=== PATIENT | male | born 1970 | race Caucasian/White ===

== ENCOUNTER 2017-08-28 12:43 | Inpatient (IN) | payer OTHER ==
[~2017-08-28] VITALS: Ht 177.8 cm; Wt 113.5 kg
[2017-08-28 13:22] VITALS: BP 135/75
[2017-08-28] MEDS ORDERED: LEVOFLOXACIN 500MG/D5W 100ML 100 ML IV SCH (13:45)
[2017-08-28] MEDS ORDERED: ONDANSETRON HCL INJ 2 MG/ML VIAL IV PRN (13:45)
[2017-08-28] MEDS ORDERED: SODIUM CHLORIDE 0.9% 1000ML 1,000 ML IV ONE ×2 (14:00→14:30)
[2017-08-28 14:32] LABS: HEMATOCRIT 45.2 % (38.2-49.6); MEAN CORPUSCULAR HEMOGLOBIN 31.1 pg (28-32); MEAN CORPUSCULAR HGB CONC 35.4 g/dL (31-35); MEAN CORPUSCULAR VOLUME 87.9 fL (81-99); PLATELET COUNT 239 x10e3/uL (140-360); RED BLOOD COUNT 5.14 x10e6/uL (4.3-5.7); RED CELL DISTRIBUTION WIDTH 12.9 % (11.7-14.4)
[2017-08-28 14:53] LABS: ALANINE AMINOTRANSFERASE 58 IU/L (0-55); ALBUMIN 3.7 g/dL (3.5-5.0); ALBUMIN/GLOBULIN RATIO 1.1 (0.8-2.0); ALKALINE PHOSPHATASE 54 IU/L (40-150); ANION GAP 14.8 mmol/L (8-16); BLOOD UREA NITROGEN 12 mg/dL (7-26); BUN/CREATININE RATIO 14 (6-25); CALCIUM 8.9 mg/dL (8.4-10.2); CARBON DIOXIDE 24 mmol/L (22-29); CHLORIDE 104 mmol/L (98-107); CREATININE, SERUM 0.85 mg/dL (0.72-1.25); EST GLOMERULAR FILTRATION RATE > 60 ML/MIN (60-); GLUCOSE 117 mg/dL (74-118); POTASSIUM 3.8 mmol/L (3.5-5.1); SODIUM 139 mmol/L (136-145)
[2017-08-28 16:00] VITALS: BP 151/89
[2017-08-28] MEDS: LEVOFLOXACIN 500MG/D5W 100ML 100 ML IV SCH (16:17)
[2017-08-28] MEDS: SODIUM CHLORIDE 0.9% 1000ML 1,000 ML IV SCH ×2 (17:30→23:53)
--- NOTE | 2017-08-28 17:32 | Diagnostic Imaging Report ---
PROCEDURE: Frontal and lateral views of the chest. COMPARISON: Patients [facility], , CHEST SINGLE (NOT PORTABLE), 10/12/2016, 13:22. INDICATIONS: PNEUMONIA FINDINGS: Lines/tubes: None. Lungs: The lungs are mildly hyperinflated, however, clear. There is no evidence of pneumonia or pulmonary edema. Pleura: There is no pleural effusion or pneumothorax. Heart and mediastinum: The cardiac silhouette is mildly enlarged. Bones: No acute bony abnormality. At the level spondylosis of the thoracic spine. IMPRESSION: 1. No acute thoracic abnormality. Carly Espino M.D. Dictated by: Carly Espino M.D. on 08/28/2017 at 17:32 Electronically approved by: Carly Espino M.D. on 08/28/2017 at 17:32
--- NOTE | 2017-08-28 17:39 | History and Physical ---
CHIEF COMPLAINT: A 47-year-old male comes in with shortness of breath and fatigue. HISTORY OF PRESENT ILLNESS: The patient was in her usual state of health until about one week prior to admission the patient was seen in the office and was diagnosed with flu positive and also started with viral pneumonia. Today, the patient comes into the office short of breath with pulse oximetry of 95% and was very dehydrated with tenting of the skin. The patient was admitted for hydration and pneumonia. PAST MEDICAL HISTORY: History of hypertension. PAST SURGICAL HISTORY: History of gastric sleeve surgery, otherwise noncontributory. SOCIAL HISTORY: No ETOH, no IV drug abuse and no history of smoking. REVIEW OF SYSTEMS: Negative for chest pain, positive for shortness of breath, positive for nausea and no vomiting. No diarrhea. No constipation. Positive for extreme fatigue, lethargy, and dryness of the mouth. No diplopia, no blurry vision, no paresthesias. PHYSICAL EXAMINATION GENERAL: The patient is alert and oriented x3. VITAL SIGNS: Pulse 83, respiratory rate 20, pulse oximetry 97% on room air at this time. HEENT: Normocephalic, atraumatic. Pupils react to light and accommodation. LUNGS: Right-sided rhonchi present. Positive for some inspiratory wheezes present. EXTREMITIES: No cyanosis, clubbing or edema. LABORATORY DATA: White count was elevated to 13. Elevated LFTs and CMP. Chest x-ray is pending. ASSESSMENT: Bronchopneumonia, failed outpatient treatment. Will start him on Levaquin IV. Hydration is waller to his treatment. Will go ahead and give him a bolus of 1 liter and follow up with 125 mL an hour. Levaquin every day and possible discharge in 1-2 days. Further recommendations depending on clinical course. The patient is also started on Atrovent treatments. Job#: [id number]
[2017-08-28 17:55] LABS: EOSINOPHILS % (MANUAL) 1 % (0-7); LYMPHOCYTES % (MANUAL) 22 % (19-48); MONOCYTES % (MANUAL) 7 % (3.4-9.0); NEUTROPHILS % (MANUAL) 70 % (40-74)
[2017-08-28 17:56] LABS: PLATELET ESTIMATE ADEQUATE; RBC MORPHOLOGY COMMENT NORMAL
[2017-08-28 20:00] VITALS: BP 140/76
[2017-08-28] MEDS: ALBUTEROL/IPRATROPIUM 3 ML NEB NEB SCH (20:00)
[2017-08-29] VITALS (7 sets, daily range): BP systolic 136–155; BP diastolic 75–92
[2017-08-29] MEDS: ALBUTEROL/IPRATROPIUM 3 ML NEB NEB SCH ×4 (01:00→20:00)
[2017-08-29] MEDS: SODIUM CHLORIDE 0.9% 1000ML 1,000 ML IV SCH ×2 (05:17→14:01)
[2017-08-29] MEDS ORDERED: BENICAR20 MG PO (07:27)
[2017-08-29] MEDS ORDERED: GUAIFENESIN/CODEINE 10 ML CUP PO PRN (13:30)
[2017-08-29] MEDS ORDERED: FUROSEMIDE INJ 10 MG/ML 4 ML VIAL IV ONE (13:30)
[2017-08-29] MEDS: LEVOFLOXACIN 500MG/D5W 100ML 100 ML IV SCH (15:00)
[2017-08-29] MEDS ORDERED: ACETAMINOPHEN 325 MG TAB PO PRN (18:45)
[2017-08-30] MEDS: ALBUTEROL/IPRATROPIUM 3 ML NEB NEB SCH ×2 (01:00→07:00)
[2017-08-30 01:06] VITALS: BP 134/78
[2017-08-30 01:07] VITALS: BP 134/78
[2017-08-30] MEDS: SODIUM CHLORIDE 0.9% 1000ML 1,000 ML IV SCH (03:49)
[2017-08-30 05:30] VITALS: BP 126/79
[2017-08-30 06:17] LABS: BASOPHILS # (AUTO) 0.1 (0.0-0.1); BASOPHILS % 1.2 % (0.0-1.0); EOSINOPHILS # (AUTO) 0.3 (0.0-0.4); EOSINOPHILS % 2.4 % (0.0-6.0); HEMATOCRIT 44.3 % (38.2-49.6); HEMOGLOBIN 15.1 g/dL (14.0-18.0); LYMPHOCYTES # (AUTO) 2.8 (1.0-3.2); LYMPHOCYTES % 25.3 % (18.0-39.1); MEAN CORPUSCULAR HEMOGLOBIN 30.9 pg (28-32); MEAN CORPUSCULAR HGB CONC 34.1 g/dL (31-35); MEAN CORPUSCULAR VOLUME 90.6 fL (81-99); MONOCYTES # (AUTO) 0.7 (0.2-0.8); MONOCYTES % 6.4 % (4.4-11.3); NEUTROPHILS % 62.8 % (38.7-80.0); PLATELET COUNT 239 x10e3/uL (140-360); RED BLOOD COUNT 4.89 x10e6/uL (4.3-5.7); RED CELL DISTRIBUTION WIDTH 13.2 % (11.7-14.4)
[2017-08-30 07:37] LABS: ANION GAP 14.1 mmol/L (8-16); BLOOD UREA NITROGEN 15 mg/dL (7-26); BUN/CREATININE RATIO 16 (6-25); CALCIUM 8.9 mg/dL (8.4-10.2); CARBON DIOXIDE 27 mmol/L (22-29); CHLORIDE 105 mmol/L (98-107); CREATININE, SERUM 0.95 mg/dL (0.72-1.25); EST GLOMERULAR FILTRATION RATE > 60 ML/MIN (60-); GLUCOSE 97 mg/dL (74-118); POTASSIUM 4.1 mmol/L (3.5-5.1); SODIUM 142 mmol/L (136-145)
[2017-08-30 07:45] VITALS: BP 173/99
[2017-08-30] MEDS ORDERED: OLMESARTAN 20 MG TAB PO SCH (09:00)
== END 2017-08-30 09:40 | disposition home or self-care (01) | DRG 195 ==
LOC: MED/SURG2 12:43
PROVIDERS: ADMIT Family Medicine; ATTEND Family Medicine
DX: J18.0 Bronchopneumonia, unspecified organism (principal); E87.70 Fluid overload, unspecified; I10 Essential (primary) hypertension; Z98.84 Bariatric surgery status; Z68.35 Body mass index [BMI] 35.0-35.9, adult
CPT/HCPCS: 36415; 71046; 80048; 80053; 85007; 85025; 85027; 94640; J1940; J1956; J7030